=== PATIENT | male | born 1955 | race Caucasian/White ===

== ENCOUNTER → 2017-06-05 | Outpatient (CLI) | payer MEDICARE, MEDICAID ==
[~2017-06-05] MED LIST: AMBIEN10 MG PO; CPAP INH; CYCLOBENZAPRINE10 MG PO; ENALAPRIL-HCTZ1 EACH PO; GLUCOPHAGE1000 MG PO; K-TAB 10MEQ10 MEQ PO; LASIX20 MG PO; LIPITOR20 M1 PO; LYRICA 150MG C150 MG PO; NORCO 5-325 TA1 EACH PO; SAVELLA50 MG PO; VITAMIN D31000 UNIT PO; VOLTAREN 1% GE100 GM TOP
== END | disposition disaster alternative care site (69) ==
LOC: LGSMG 11:27
DX: M79.602 Pain in left arm (principal)